=== PATIENT | male | born 1980 | race Two or more races ===

== ENCOUNTER 2021-11-27 06:23 | Emergency (ER) | payer BC, OTHER ==
[~2021-11-27] VITALS: Ht 190.5 cm; Wt 104.3 kg
[2021-11-27] MEDS ORDERED: KETOROLAC TROMETH 30 MG/ML 1ML VIAL IM ONE (06:30)
[2021-11-27 06:53] LABS: Urine Bacteria NONE SEEN /hpf (None Seen); Urine Blood 2+ /uL (Negative); Urine Mucus FEW (None Seen); Urine Specific Gravity 1.029 (1.001-1.035); Urine WBC 4 /hpf (0 - 3)
[2021-11-27 07:24] LABS: Basophils # (auto) 0.1 10 ^3/uL (0-0.2); Basophils % (auto) 1.1 % (0.0-2.0); Eosinophils # (auto) 0.1 10 ^3/uL (0-0.8); Eosinophils % (auto) 1.6 % (0.0-7.0); Hematocrit 44.4 % (41.0-53.0); Hemoglobin 15.2 g/dL (13.5-17.5); Lymphocytes % (auto) 14.9 % (10.0-50.0); Mean Corpuscular Hemoglobin 28.8 pg (28.0-32.0); Mean Corpuscular Hgb Conc. 34.1 g/dL (32.0-36.0); Mean Corpuscular Volume 84.4 fL (80.0-100.0); Monocytes # (auto) 0.5 10 ^3/uL (0-1.3); Monocytes % (auto) 7.4 % (0.0-12.0); Nucleated Red Blood Cells % 0.2 %; Red Blood Cells 5.26 10^6/uL (4.5-5.90); Red Cell Distribution Width 13.4 % (11.8-14.3); White Blood Cell 6.7 10^3/uL (4.4-10.8)
[2021-11-27] MEDS ORDERED: SODIUM CHLORIDE 0.9% 500 ML IVB ONE (07:30)
[2021-11-27 07:36] LABS: Albumin 4.1 g/dL (3.4-5.0); BUN/Creatinine Ratio 20.2; Potassium 4.1 mmol/L (3.5-5.1)
[2021-11-27 07:38] LABS: Bilirubin, Total 0.8 mg/dL (0.2-1.0); Total Protein 7.5 g/dL (6.4-8.2)
[2021-11-27] MEDS ORDERED: IOHEXOL 300 MG/ML 100ML BOTTLE IJ ONE (07:53)
[2021-11-27] MEDS ORDERED: MORPHINE SULFATE INJ 2 MG/ml SYRG IV PRN (08:45)
[2021-11-27] MEDS ORDERED: MORPHINE SULFATE INJ 2 MG/ml SYRG IV ONE (08:45)
[2021-11-27] MEDS ORDERED: TAMSULOSIN HYDROCHLORIDE 0.4 MG CAP PO ONE (10:00)
[2021-11-27] MEDS ORDERED: ONDANSETRON HCL 4 MG/2 ML VIAL IV ONE ×2 (10:15)
[2021-11-27] MEDS ORDERED: OXYCODONE W/ ACETAMINOPHEN 5/325MG TABLET PO ONE (10:15)
[2021-11-27] MEDS ORDERED: KETOROLAC TROMETH 30 MG/ML 1ML VIAL IV ONE (10:15)
[2021-11-27] MEDS ORDERED: PERCOT PO ×2 (10:25→11:18)
[2021-11-27] MEDS ORDERED: TAM04C PO (10:25)
[2021-11-27 11:00] VITALS: BP 125/77
== END 2021-11-27 11:28 | disposition home or self-care (01) ==
LOC: ER 06:23
DX: N20.0 Calculus of kidney (principal)
CPT/HCPCS: 36415; 74177; 80053; 81001; 83605; 83690; 85025; 96361; 96372; 96374; 96375; 99285; J1885; J2270; J2405; J7040; Q9967

== ENCOUNTER 2022-07-11 03:29 | Emergency (ER) | payer BC ==
[~2022-07-11] VITALS: Ht 182.9 cm; Wt 106.3 kg
[~2022-07-11 03:29] MED LIST: PERCOT PO; TAM04C PO
[2022-07-11 06:10] VITALS: BP 113/59
== END 2022-07-11 06:10 | disposition home or self-care (01) ==
LOC: ER 03:29
DX: J06.9 Acute upper respiratory infection, unspecified (principal); Z20.822 Contact with and (suspected) exposure to COVID-19
CPT/HCPCS: 36415; 87426; 87804